=== PATIENT | male | born 1975 | race Caucasian/White ===

== ENCOUNTER 2022-07-23 16:35 | Observation (INO) | payer OTHER ==
[~2022-07-23] VITALS: Ht 175.3 cm; Wt 120.7 kg
[2022-07-23] MEDS ORDERED: LITH300C PO (16:56)
[2022-07-23] MEDS ORDERED: FAMO20 PO (16:57)
[2022-07-23] MEDS ORDERED: PROP60 PO (16:58)
[2022-07-23] MEDS ORDERED: QUET300 PO (16:58)
[2022-07-23] MEDS ORDERED: LYBALVI 15-101 EACH PO (17:01)
== END 2022-07-24 16:41 ==
LOC: ER 16:35 → EOR 16:36
PROVIDERS: ADMIT Emergency Medicine
DX: F25.0 Schizoaffective disorder, bipolar type (principal); F41.1 Generalized anxiety disorder
CPT/HCPCS: 99285; A9270; G0378; Q3014